=== PATIENT | female | born 2005 | race Two or more races ===

== ENCOUNTER 2023-11-09 19:44 | Emergency (ER) | payer OTHER ==
[~2023-11-09] VITALS: Ht 162.6 cm; Wt 82.1 kg
[2023-11-09 23:40] LABS: HEMATOCRIT 38.6 % (36.0-45.00); HEMOGLOBIN 12.7 g/dL (12.0-15.00); MEAN CELL VOLUME 84.8 fL (80.00-100.00); PLATELET COUNT 214 K/uL (150-450); RED BLOOD COUNT 4.55 M/uL (4.00-6.00); RED CELL DISTRIBUTION WIDTH 14.3 % (11.5-14.5)
== END 2023-11-10 00:08 | disposition home or self-care (01) ==
LOC: ER 19:45
PROVIDERS: Emergency Medicine
DX: S69.82XA Other specified injuries of left wrist, hand and finger(s), initial encounter (principal); W46.1XXA Contact with contaminated hypodermic needle, initial encounter; Y93.89 Activity, other specified; Y92.89 Other specified places as the place of occurrence of the external cause; Y99.8 Other external cause status

== ENCOUNTER 2023-12-27 10:30 | Outpatient (CLI) | payer OTHER | END 2023-12-27 10:40 | disposition home or self-care (01) | LOC: PPH VACUNA 10:30 | PROVIDERS: ATTEND Emergency Medicine Pediatric Emergency Medicine | DX: Z23 Encounter for immunization (principal) ==

== ENCOUNTER 2024-05-20 15:20 | Emergency (ER) | payer OTHER ==
[~2024-05-20] VITALS: Ht 162.6 cm; Wt 79.4 kg
== END 2024-05-20 17:04 | disposition home or self-care (01) ==
LOC: ER 15:21
DX: B02.9 Zoster without complications (principal)

== ENCOUNTER 2024-11-22 12:00 | Outpatient (CLI) | payer OTHER | END 2024-11-22 12:05 | disposition home or self-care (01) | LOC: RAD 12:00 | PROVIDERS: ATTEND Orthopaedic Surgery Orthopaedic Surgery of the Spine | DX: M51.360 Other intervertebral disc degeneration, lumbar region with discogenic back pain only (principal); M96.1 Postlaminectomy syndrome, not elsewhere classified ==

== ENCOUNTER 2024-12-13 16:00 | Outpatient (CLI) | payer OTHER | END 2024-12-13 16:10 | disposition home or self-care (01) | LOC: PPH VACUNA 16:00 | PROVIDERS: ATTEND Emergency Medicine Pediatric Emergency Medicine | DX: Z23 Encounter for immunization (principal) ==

== ENCOUNTER 2024-12-26 12:53 | Outpatient (CLI) | payer OTHER | END 2024-12-26 12:55 | disposition home or self-care (01) | LOC: SONOGRAMA 12:53 | PROVIDERS: ATTEND Obstetrics & Gynecology | DX: N83.01 Follicular cyst of right ovary (principal); N83.02 Follicular cyst of left ovary ==

== ENCOUNTER 2024-12-27 06:03 | Outpatient (CLI) | payer OTHER ==
[2024-12-27 06:55] LABS: HEMATOCRIT 39.6 % (36.0-45.00); MEAN CELL VOLUME 86.8 fL (80.00-100.00); MEAN CORPUSCULAR HEMOGLOBIN 28.6 pg (27.00-32.0); MEAN CORPUSCULAR HGB CONC 32.9 g/dl (32.0-36.0); PLATELET COUNT 221 K/uL (150-450); RED BLOOD COUNT 4.56 M/uL (4.00-6.00); RED CELL DISTRIBUTION WIDTH 13.7 % (11.5-14.5)
[2024-12-27 07:02] LABS: PH,URINE 5.5 (5.0-8.0); URINE APPEARANCE Clear; URINE BILIRRUBIN Negative (NEGATIVE); URINE BLOOD Negative; URINE COLOR Yellow; URINE GLUCOSE Negative (NEGATIVE); URINE KETONE Negative (NEGATIVE); URINE LEUKOCYTE Negative; URINE NITRATE Negative; URINE PROTEIN Negative (NEGATIVE); URINE UROBILINOGEN 0.2 E.U./dl
[2024-12-27 07:06] LABS: URINE BACTERIA 95.4 uL (0.0-1933); URINE EPITHELIAL CELLS 8.5 uL (0.0-38.8); URINE RBC 3.9 uL (0.0-20.8); URINE WBC 3.7 uL (0.0-23.2)
[2024-12-27 07:09] LABS: URINE CAST 0.14 uL (0.0-1.40)
[2024-12-27 07:50] LABS: ALBUMIN 3.7 gm/dL (3.4-5.0); BILIRUBIN TOTAL 0.42 mg/dL (0.3-1.2); CALCIUM 8.8 mg/dL (8.5-10.1); CREATININE SERUM 0.5 mg/dL (0.55-1.02); GFR 155.75; GLOBULINA 3.5 G/DL (2.4-3.5); POTASSIUM 4.02 mEq/L (3.5-5.1); TOTAL PROTEIN 7.2 gm/dL (6.4-8.2); TSH 1.7 uIU/mL (0.358-3.74)
[2024-12-28 10:08] LABS: hav igm Negative (Negative); hcv Non Reactive (Non Reactive); hep b c Negative (Negative); hep b s ag Negative (Negative)
== END 2024-12-27 06:14 | disposition home or self-care (01) ==
LOC: LAB 06:03
PROVIDERS: ATTEND Obstetrics & Gynecology
DX: D64.9 Anemia, unspecified (principal); N30.00 Acute cystitis without hematuria; E03.8 Other specified hypothyroidism; D68.8 Other specified coagulation defects; N72 Inflammatory disease of cervix uteri; R10.9 Unspecified abdominal pain; E55.9 Vitamin D deficiency, unspecified; B20 Human immunodeficiency virus [HIV] disease; A51.0 Primary genital syphilis; B00.81 Herpesviral hepatitis; A60.9 Anogenital herpesviral infection, unspecified

== ENCOUNTER 2025-08-07 15:53 | Emergency (ER) | payer OTHER ==
[~2025-08-07] VITALS: Ht 160 cm; Wt 77.1 kg
[2025-08-07] MEDS ORDERED: DEXAMETHASONE SODIUM PHOSP/PF 10 MG/ML VIAL IJ ONE (16:30)
[2025-08-07] MEDS ORDERED: ACETAMINOPHEN 500 MG GEL..CAP PO ONE ×2 (16:30→17:10)
[2025-08-07] MEDS ORDERED: 0.9 % SODIUM CHLORIDE 1,000 ML IV SCH (16:30)
[2025-08-07] MEDS ORDERED: DEXAMETHASONE SODIUM PHOSPHATE 4 MG/ML VIAL ONE (17:11)
[2025-08-07 18:45] LABS: BASO % 0.2 % (0.1-1.2); EOS # 0.14 (0.04-0.54); EOS % 1.0 % (0.7-7.0); LYMPH # 2.52 (1.18-3.74); LYMPH % 18.3 % (19.3-53.1); MEAN PLATELET VOLUME 10.50 fl (9.4-12.4); MONO # 0.89 (0.24-0.82); MONO % 6.4 % (4.7-12.5); NEUT # 10.18 (1.56-6.13); NEUT % 73.8 % (34.0-71.1); RED CELL DISTRIBUTION WIDTH 12.8 % (11.6-14.4)
[2025-08-07 19:14] LABS: COVID-19 AG NEGATIVE (NEGATIVE)
[2025-08-07 19:29] LABS: ALT/SGPT 23.0 U/L (12-78); AST/SGOT 13.0 U/L (15-37); BILIRUBIN TOTAL 0.43 mg/dL (0.3-1.2); BUN CREA RATIO 16.0 (7.0-25.0); CREATININE SERUM 0.51 mg/dL (0.55-1.02); GFR 152.23; GLOBULINA 3.6 G/DL (2.4-3.5); GLUCOSE FASTING 91.0 mg/dL (65-100); OSMOLALITY SERUM 277.0 MOSM/KG (275-295)
[2025-08-07] MEDS ORDERED: ZITHROMAX500 MG PO (20:49)
[2025-08-07] MEDS ORDERED: CHLORASEPTIC177 M2 MM (20:49)
[2025-08-07 21:00] VITALS: BP 110/72; O2SAT 95
== END 2025-08-07 21:03 | disposition home or self-care (01) ==
LOC: ER 15:53
PROVIDERS: Student in an Organized Health Care Education/Training Program
DX: B34.9 Viral infection, unspecified (principal); Z20.822 Contact with and (suspected) exposure to COVID-19

== ENCOUNTER 2025-10-03 14:00 | Outpatient (CLI) | payer OTHER ==
[~2025-10-03 14:00] MED LIST: CHLORASEPTIC177 M2 MM; ZITHROMAX500 MG PO
[2025-10-30] MEDS ORDERED: ZITHROMAX500 MG PO (11:23)
[2025-10-30] MEDS ORDERED: MUCINEX D ER 11 EACH PO (11:23)
== END 2025-10-03 14:10 | disposition home or self-care (01) ==
LOC: PPH VACUNA 14:00
PROVIDERS: ATTEND Emergency Medicine Pediatric Emergency Medicine
DX: Z23 Encounter for immunization (principal)